=== PATIENT | female | born 2000 ===

== ENCOUNTER 2020-07-13 19:55 | Inpatient (IN) | payer OTHER ==
[~2020-07-13] VITALS: Ht 160 cm; Wt 54.8 kg
[2020-07-13] MEDS ORDERED: acetaminophen 325mg tablet PO PRN ×2 (23:50)
[2020-07-13] MEDS ORDERED: magnesium hydroxide 30ml (MOM) UD suspension PO PRN (23:50)
[2020-07-13] MEDS ORDERED: NICOTINE POLACRILEX 2 MG LOZENGE BC PRN (23:50)
[2020-07-14] MEDS: LORazepam 1 MG tablet PO PRN ×2 (00:05→17:21)
[2020-07-14] MEDS: traZODone 50mg tablet PO PRN ×3 (00:05→20:52)
--- NOTE | 2020-07-14 01:23 | NUR ---
ADMIT NOTE: Patient is a 19 y/o female with a history of Anxiety and Celiac disease, presented to the ED with complaints of severe anxiety for the past year and a half. Patient says that she tried getting help in the past, but it failed. However, for the past three weeks she has been re-attempting to get help for her anxiety. The patient was brought to the floor by Marian thrasher and . She has showered and had skin checked with no findings. She has been oriented to the unit, medicated, and given a snack.
[2020-07-14] MEDS ORDERED: NO HOME MEDS (02:06)
[2020-07-14 07:00] VITALS: BP 129/75
[2020-07-14] MEDS: mag hydrox/Alum hydrox/simeth 30ml oral suspension PO PRN (09:40)
[2020-07-14] MEDS ORDERED: ESCITALOPRAM OXALATE 5 MG TABLET PO ONE (09:50)
--- NOTE | 2020-07-14 10:00 | NUR ---
Group Therapy: Process Group This Clinicians goal for this process group were as follows: (1) Ask scaling questions about Patients current anxiety, depression, and irritability symptoms as a check-in. (2) Provide psychoeducation on emotional and situational stressors. (3) Discuss thoughts and feelings that patients experience when they have experienced an emotional and/or situational stressor. (4) Provide psychoeducation on interventions, as actions patients can take to reduce feelings of emotional escalation caused by situational and emotional stressors. (5) Process Patients thoughts and reflections on this topic within the group milieu. Patient identified experiencing the following levels of anxiety, depression, and anger/irritability while present in the group milieu (0-low; 10-High). Anxiety: 8/10 Depression: 0/10 Anger/irritability: 0/10 Patient presented as properly oriented x4 during the process group. Patient was dressed in [facility] scrubs that were appropriate within the milieu. Psychomotor activity was unremarkable. Patient's thought content was clear, and concrete. Patient's thought process was clear, coherent, and linear. This Clinician did not observe Patient responding to any internal stimuli during session. The rate, latency, and tone of Patients speech was within normal limits. Patients speech was clear and understandable. Patient maintained regular eye contact with this Clinician. Patient presented in calm euthymic mood, with congruent affect during the process group. Patient presented as open, cooperative, verbally engaged, and nonobtrusive within the group milieu. During her initial check-in with this Clinician Patient reported experiencing heightened anxiety symptoms, 8/10. Patient stated that she felt like she had a, "Trembling heart.' Patient was an active participant in discussing emotional and situational stressors, and was able to identify both thoughts and feelings that certain stressful situations generate. Patient was also active in identifying interventions that one could identify in advance that would help one to cope successfully with stressful situations. Patient interacted well with her peers. Gerald Pathak MA, MADHURI Addendum: 11/18/20 at 0822 by Gerald HUGHES Amended: Links added.
--- NOTE | 2020-07-14 17:54 | NUR ---
Assessment: Nursing Progress Note: Legal hold: 5150 for DTS Report received from Neelima Salcedo RN with use of SBAR Why they are here: Patient is a 19 y/o female with a history of Anxiety and Celiac disease, presented to the ED with complaints of severe anxiety for the past year and a half. Patient says that she tried getting help in the past, but it failed. However, for the past three weeks she has been re-attempting to get help for her anxiety. Assessment What has happened this shift: Pt. asleep at start of shift. Pt. awake for breakfast. Pt. started on Lexapro. Pt. took medications and ate all meals in the community room. Pt. went out on patio, pt. seen playing with basketball and socializing with peers. Pt. is in a playful mood. Pt. reporting anxiety and took shower, afterward pt. states, I feel better. 1:1 done at bedside, pt. denies SI/HI, A/V hallucinations. Pt. reports that she is here because she her anxiety became unimaginable. Pt. states, normally I have things to keep me busy so Im distracted, but in here I cant distract myself. Later pt. described what she felt as the main source of her anxiety as her boyfriend. Pt. states, Hes attracted to his cousin, when I confront him about this he puts the blame on me. Pt. reports that she loves him but feels conflicted with his manipulation. Pt. reports she hopes she is discharged soon. Pt.s mom called requesting an update about discharge plan so that she knows when to drive up to pick pt. up. S/I, H/I: denies A/VH: Denies Sleep: Pt. did not nap on day shift. ADL's: Independent. Pt. showered today. Group attendance: Yes Were meds taken: Yes. Any med S/E: None reported. None observed. Mental Status Exam Appearance: Well-groomed wearing green scrub pants and black top. Eye contact: Direct Behavior: Pleasant, socializing in community room, and watching TV. Speech: WNL Mood: Euthymic with moments of elation. Some anxiety observed. Affect: Congruent with mood Thought process: Linear Thought Content: Focused on boyfriend and the ways he causes her anxiety. Focused on discharge. Cognition: A&OX4 Insight: Fair Judgment: Fair Interventions PRN's used: Ativan x1. Therapeutic interventions: Introduced self and established rapport, maintained a safe and supportive environment, ensured contract for safety, provided active listening and positive encouragement, encouraged participation on the unit, spoke with pt.s mom with pt.s consent, and maintained Q 15min safety checks. Restraints/seclusion/emergency medication: None Justification of Continued Inpatient Treatment: Pt. requires interruption of current crisis, medication adjustments, and a safe and supportive environment.
--- NOTE | 2020-07-14 17:55 | NUR ---
PLEASE UPDATE PT.'S MOTHER WITH DISCHARGE PLAN: Osmar [phone]. RN received permission to speak with mother. Mother needs to know when to leave to pick pt. up.
[2020-07-14 20:49] VITALS: BP 131/73
--- NOTE | 2020-07-15 04:26 | NUR ---
Nursing Progress Note: Legal hold: 5150 Involuntary status for DTS Report received from Dallin VERDUZCO with use of SBAR Why they are here: Patient is a 19 y/o female with a history of Anxiety and Celiac disease, presented to the ED with complaints of severe anxiety for the past year and a half. Patient says that she tried getting help in the past, but it failed. However, for the past three weeks she has been re-attempting to get help for her anxiety. Assessment What has happened this shift: Patient observed talking on the phone in the recreation room at the beginning of shift. Observed singing and socializing appropriately this shift. Pleasant and cooperative with all care; PRN Trazodone x2 provided with positive effect. Patient denies SI, HI, A/VH this shift and denies depression. She describes herself as "feeling much better" and "totally fine." Patient participated in HS snack and showered prior to bed. Patient reported having difficulty getting to sleep; post second dose of Trazodone patient observed sleeping without difficulty. S/I, H/I: Denies A/VH: Denies Sleep: Refer to sleep assessment ADL's: Independent Group attendance: NA Were meds taken: Yes Any med S/E: None observed or reported Mental Status Exam Appearance: Neat, clean and appropriate Eye contact: Direct Behavior: Pleasant and cooperative, socializing, singing, talking on the phone Speech: Clear, audible, regular rate/rhythm Mood: Euthymic Affect: Bright Thought process: Linear, appears to be minimizing Thought Content: Feeling better, missing home Cognition: A/OX4 Insight: Fair Judgment: Fair Interventions PRN's used: Trazodone Therapeutic interventions: Introduced self and established rapport, maintained a safe and supportive environment, ensured contract for safety, provided active listening and positive encouragement, encouraged participation on the unit, spoke with pt.s mom with pt.s consent, and maintained Q 15min safety checks. Restraints/seclusion/emergency medication: None Justification of Continued Inpatient Treatment: Pt. requires interruption of current crisis, medication adjustments, and a safe and supportive environment.
[2020-07-15] MEDS: LORazepam 1 MG tablet PO PRN (05:17)
[2020-07-15] MEDS: mag hydrox/Alum hydrox/simeth 30ml oral suspension PO PRN (06:11)
[2020-07-15 08:00] VITALS: BP 127/64
[2020-07-15] MEDS: ESCITALOPRAM OXALATE 5 MG TABLET PO SCH (08:36)
[2020-07-15] MEDS: pantoprazole 40mg Tablet.DR PO SCH (08:36)
--- NOTE | 2020-07-15 14:16 | NUR ---
DISCHARGE PLANNING Met with Sherrie to complete psychosocial and activity assessment. Sherrie was friendly, cooperative, and talkative. Mood and affect were bright. Speech was coherent and absent of any obvious delusions or paranoia. She reported she was feeling overwhelmed with intense emotions and "had a mental breakdown...I didn't feel ok". She was brought to the ED in [place] by her boyfriend. She reported "dark thoughts" that included suicidal ideation. Today she denied any current SI and stated, "I have a fear of ". 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 After meeting she called and set up an appointment with a therapist on 07/18/20. Physical Anthropologist scheduled her a post hospital appointment with her PCP for 08/01/20. She reported her boyfriend is planning on picking her up tomorrow. MADHURI Bernardo
--- NOTE | 2020-07-15 17:07 | NUR ---
Nursing Progress Note: Legal hold: 5150 for DTS Report received from LUBA Henson with use of SBAR Why they are here: Patient is a 19 y/o female with a history of Anxiety and Celiac disease, presented to the ED with complaints of severe anxiety for the past year and a half. Patient says that she tried getting help in the past, but it failed. However, for the past three weeks she has been re-attempting to get help for her anxiety. Assessment What has happened this shift: Received pt sleeping at shift change. Patient awakens and is seen talking on the phone with her family in her room. Patient is crying while she is talking on the telephone. Patient reports that she is home sick and is attempting to keep herself distracted while here. Patient reports that she gets headaches and stomach upset premenstrually. Patient believes she will start her menses tomorrow. S/I, H/I: denies A/VH: Denies Sleep: 7.25 hrs NOC. ADL's: Independent. Group attendance: Yes Were meds taken: Yes. Any med S/E: None reported. None observed. Mental Status Exam Appearance: Well-groomed wearing green scrub pants and black top. Eye contact: Direct Behavior: Isolating to her room, talking on the phone to family. Speech: WNL Mood: Depressed. Affect: Sad. Thought process: Linear Thought Content: Discharging. Cognition: A&OX4 Insight: Fair Judgment: Fair Interventions PRN's used: Therapeutic interventions: Introduced self and established rapport, maintained a safe and supportive environment, ensured contract for safety, provided active listening and positive encouragement, encouraged participation on the unit, and maintained Q 15min safety checks. Restraints/seclusion/emergency medication: None Justification of Continued Inpatient Treatment: Pt. requires interruption of current crisis, medication adjustments, and a safe and supportive environment.
[2020-07-15] MEDS: traZODone 50mg tablet PO PRN ×2 (19:37→21:09)
[2020-07-15 20:55] VITALS: BP 121/73
[2020-07-16] MEDS: LORazepam 1 MG tablet PO PRN ×2 (02:40→07:55)
[2020-07-16] MEDS: mag hydrox/Alum hydrox/simeth 30ml oral suspension PO PRN ×2 (02:40→07:07)
--- NOTE | 2020-07-16 04:50 | NUR ---
Nursing Progress Note: Legal hold: 5150 Involuntary status for DTS Report received from Dallin VERDUZCO with use of SBAR Why they are here: Patient is a 19 y/o female with a history of Anxiety and Celiac disease, presented to the ED with complaints of severe anxiety for the past year and a half. Patient says that she tried getting help in the past, but it failed. However, for the past three weeks she has been re-attempting to get help for her anxiety. Assessment What has happened this shift: Patient observed socializing appropriately with peers at the beginning of shift. Pleasant and cooperative with care; PRN Trazodone, Ativan and Maalox provided upon requests with positive effects. Patent continues to deny SI, HI, A/VH and denies feeling depressed this shift. She reports that she is possibly discharging Tuesday (07/16). Patient participated in HS snack and attempted to get to sleep early this shift but repeat dose Trazodone needed. Later observed sleeping and appears to be sleeping with minimal difficulty. She wok with menstrual pain and appeared anxious. Tylenol and Ativan provided with positive effect. S/I, H/I: Denies A/VH: Denies Sleep: Refer to sleep assessment ADL's: Independent Group attendance: NA Were meds taken: Yes Any med S/E: None observed or reported Mental Status Exam Appearance: Neat, clean and appropriate Eye contact: Direct Behavior: Pleasant and cooperative, socializing appropriately, watching TV Speech: Clear, audible, regular rate/rhythm Mood: Euthymic Affect: Bright Thought process: Linear Thought Content: Plan to discharge Cognition: A/OX4 Insight: Fair Judgment: Fair Interventions PRN's used: Trazodone, Ativan, Tylenol and Maalox Therapeutic interventions: Introduced self and established rapport, maintained a safe and supportive environment, ensured contract for safety, provided active listening and positive encouragement, encouraged participation on the unit, spoke with pt.s mom with pt.s consent, and maintained Q 15min safety checks. Restraints/seclusion/emergency medication: None Justification of Continued Inpatient Treatment: Pt. requires interruption of current crisis, medication adjustments, and a safe and supportive environment.
[2020-07-16] MEDS: pantoprazole 40mg Tablet.DR PO SCH (07:08)
[2020-07-16] MEDS: ESCITALOPRAM OXALATE 5 MG TABLET PO SCH (07:08)
[2020-07-16] MEDS ORDERED: TRAZ-251 PO (07:11)
[2020-07-16] MEDS ORDERED: PANT40TA54 PO (07:11)
[2020-07-16] MEDS ORDERED: ESCI5TAB PO (07:11)
--- NOTE | 2020-07-16 08:00 | NUR ---
Pt woke and c/o feeling anxious "I don't normally feel like this. " Pt's AM vitals were WNL except HR ranged from 120-160. Information Technology Technician sat with patient and demonstrated deep breathing exercises and talked about different coping techniques. Pt state she was "a little nervous regarding her discharge today." Pt was administered Ativan 1mg after speaking with Dr. De La O. Pt showered and was distracted with a hand held game console. Interventions had a positive effect. Upon reassessment heart rate decreased to 106. Pt enjoys singing and was encouraged by bond writer to sing her heart out. Pt later in the day was heard singing in her room and states "this makes me feel good."
[2020-07-16 08:08] VITALS: BP 120/78
--- NOTE | 2020-07-16 10:00 | NUR ---
Group Therapy: Process Group This Clinicians goals for this process group were as follows: (1) Ask scaling questions about Patients current anxiety, depression, and irritability symptoms as a check-in. (2) Share with patients psychoeducation about the importance of being able to identify safe, and supportive people who can assist them with their mental and emotional needs. (3) Share psychoeducation on interpersonal boundaries and considerations to assist patients in developing the ability to discern which groups and individuals will be helpful in assisting them during times of emotional escalation and crisis. (4) Engage patients in discussion of the topics discussed within the group milieu. Patient identified experiencing the following levels of anxiety, depression, and anger/irritability while present in the group milieu (0-low; 10-High). Anxiety: 5/10 Depression: 0/10 Anger/irritability: 0/10 Patient presented as properly oriented x4 during the process group. Patient was dressed in nondescript, personal clothing that were appropriate within the milieu. Psychomotor activity was unremarkable. Patient's thought content was clear, and concrete. Patient's thought process was clear, coherent, and linear. This Clinician did not observe Patient responding to any internal stimuli during session. The rate, latency, and tone of Patients speech was within normal limits. Patients speech was clear, and understandable. She occasionally engaged in quiet crosstalk with a peer. Due to the low volume of this conversation, no therapeutic redirection was given during these moments. Patient maintained regular eye contact with this Clinician. Patient presented in calm euthymic mood, with congruent affect during the process group. Patient presented as open, cooperative, verbally engaged, and nonobtrusive within the group milieu. Patient was an active verbal participant during the process group discussion on healthy interpersonal boundaries, in the context of identifying safe, and supportive people who can assist them in receiving appropriate mental health support. In general, Patient reported that she did not like to share sensitive information about her mental health history with most of her family because she, "Doesn't like," many of them. She added that she feels more comfortable talking to mental health professionals and doctors about her mental health situation. Patient interacted well with her peers. Gerald Pathak MA, TESTER REGULATOR Addendum: 07/17/20 at 0824 by Gerald HUGHES Amended: Links added.
--- NOTE | 2020-07-16 14:27 | NUR ---
DISCHARGE NOTE: Patient was discharged today at 1407. This marine underwriter walked pt to lobby with all personal belongings and discharge paperwork. Pt's boyfriend picked her up and was talking her back to [place] to her mom's house. Pt. vitals were obtained BP 120/72; HR 101; RR 14; T 98.6. Pt denied anxiety at the time of discharge and voiced being "grateful" for her time on [facility]. Reviewed discharge instructions with patient and she verbalized understanding. Coping and calming techniques were reenforced with patient.
== END 2020-07-16 14:07 | disposition home or self-care (01) | DRG 885 ==
LOC: ADULT MH 23:33
PROVIDERS: ADMIT Psychiatry & Neurology Psychiatry; ATTEND Psychiatry & Neurology Psychiatry
DX: F33.2 Major depressive disorder, recurrent severe without psychotic features (principal); F12.10 Cannabis abuse, uncomplicated; F43.10 Post-traumatic stress disorder, unspecified; K21.9 Gastro-esophageal reflux disease without esophagitis; Z79.899 Other long term (current) drug therapy
CPT/HCPCS: 87081